=== PATIENT | male | born 1970 | race Caucasian/White ===

== ENCOUNTER → 2017-05-30 | Outpatient (CLI) | payer OTHER ==
[~2017-05-30] MED LIST: GADOBUTROL 10 ML VIAL IVP ONE
== END ==
LOC: FIMAGING 19:49
PROVIDERS: ATTEND Physician Assistant
DX: M51.36 Other intervertebral disc degeneration, lumbar region (principal); R22.9 Localized swelling, mass and lump, unspecified
CPT/HCPCS: A9585

== ENCOUNTER → 2017-09-04 | Outpatient (CLI) | payer OTHER | LOC: FIMAGING 10:45 | PROVIDERS: ATTEND Physician Assistant | DX: M51.36 Other intervertebral disc degeneration, lumbar region (principal); M12.88 Other specific arthropathies, not elsewhere classified, other specified site; M51.26 Other intervertebral disc displacement, lumbar region; M48.061 Spinal stenosis, lumbar region without neurogenic claudication; M99.73 Connective tissue and disc stenosis of intervertebral foramina of lumbar region | CPT/HCPCS: A9585 ==

== ENCOUNTER 2017-12-06 08:58 | Emergency (ER) | payer OTHER ==
--- NOTE | 2017-12-06 09:11 | CPEKG ---
Heart Rate: 59 RR Interval: 1017 P-R Interval: 176 QRSD Interval: 92 QT Interval: 436 QTC Interval: 432 P Mauk: 51 QRS Mauk: 47 T Wave Mauk: 52 EKG Severity - NORMAL ECG - EKG Impression: SINUS RHYTHM Electronically Signed By: Zaki Anne 06-Dec-2017 09:11:28
[2017-12-06] MEDS ORDERED: ASPIRIN 81 MG CHEWABLE TAB PO ONE (09:15)
--- NOTE | 2017-12-06 09:20 | EDPHY ---
H & P Stated Complaint: CP - Personal History Current Tetanus/Diphtheria Vaccine: Yes Current Tetanus Diphtheria and Acellular Pertussis (TDAP): Yes - Medical/Surgical History Hx Asthma: No Hx Chronic Respiratory Disease: No Hx Diabetes: No Hx Cardiac Disease: No Hx Renal Disease: No Hx Cirrhosis: No Hx Alcoholism: No Hx HIV/AIDS: No Hx Splenectomy or Spleen Trauma: No Other PMH: hypothyroid - Social History Smoking Status: Never smoked Time Seen by Provider: 12/06/17 09:08 HPI/ROS: CHIEF COMPLAINT: Chest pain, now resolved HISTORY OF PRESENT ILLNESS: 47 year male arrives via private vehicle complaining of "heartburn" which started at 720 a.m. this morning after being in a self-described easy yoga class for approximately 15 min. Pain lasted approximately 20 min. It was not associated with dyspnea, diaphoresis, nausea, jaw pain, arm pain, syncope, near syncope. Currently asymptomatic. He completed the yoga class. He went to an urgent care after yoga class and was referred to the ER for further evaluation. Yesterday he went for an hour long exertional bicycle ride and did not experience chest pain with exertion or dyspnea with exertion, beyond that expected with exercise. He denies: Recent illness, dyspnea, syncope, near syncope, URI symptoms, trauma, fall REVIEW OF SYSTEMS: A ten point review of systems was performed and is negative with the exception of the items mentioned in the HPI PAST MEDICAL & SURGICAL HISTORY: appendectomy. Intermittent chronic back pain SOCIAL HISTORY: Nonsmoker. No drug use. No cocaine use. Works as a computer customer support specialist. FAMILY HISTORY: Father with history of CABG at age 68. Otherwise no family history of cardiac disease. No vasculopathy history. PHYSICAL EXAM (Prior to examination, patient consented to physical exam, hands were washed and my usual and customary physical exam procedures followed) 1) GENERAL: Well-developed, well-nourished, alert and oriented. Appears to be in no acute distress. Smiling, shakes my hand appears well 2) HEAD: Normocephalic, atraumatic 3) HEENT: Pupils equal, round, reactive to light bilaterally. Sclera anicteric. 4) NECK: Full range of motion, no meningeal signs. No carotid bruit. 5) LUNGS: Clear auscultation bilaterally, no wheezes, no rhonchi, no retractions. No chest wall pain. 6) HEART: Regular rate and rhythm, no murmur, no heave, no gallop. 7) ABDOMEN: No guarding, no rebound, no focal tenderness, negative McBurney's, negative Weaver's, negative Rovsing's, negative peritoneal sign, 8) MUSCULOSKELETAL: Moving all extremities, no focal areas of tenderness, no obvious trauma. No peripheral edema or discoloration. Negative Homans no palpable cord 9) BACK: No visual or palpable abnormality. 10) SKIN: No rash, no petechiae. 11) Psychiatric: Patient is oriented X 3, there is no agitation. DIFFERENTIAL DIAGNOSIS: In no particular order, including but not limited to myocardial ischemia, pulmonary embolus, chest wall pain, pleural inflammation and pulmonary infectious causes. (Rd Carter) Constitutional: Initial Vital Signs Temperature (C) 36.9 C 12/06/17 09:01 Heart Rate 60 12/06/17 09:01 Respiratory Rate 16 12/06/17 09:01 Blood Pressure 125/89 H 12/06/17 09:01 O2 Sat (%) 95 12/06/17 09:01 O2 Delivery Mode Room Air Allergies/Adverse Reactions: No Known Drug Allergies Allergy (Verified 12/06/17 09:19) Home Medications: Medication Instructions Recorded Synthroid 12/06/17 Medical Decision Making - Diagnostics Imaging Results: Imaging Impressions Chest X-Ray 12/06/17 09:16 Impression: Normal chest x-ray. ED Course/Re-evaluation: Patient was re-evaluated with serial in examinations emergency department. Patient was also seen and examined by Dr. Zaki Anne in the ER, secondary supervising physician. Patient has negative initial troponin, low risk Heart pathway score. In addition, reassuring that he went for a 1 hr bicycle ride yesterday described as strenuous and did not experience chest pain with exertion or dyspnea with exertion. I think that acute cardiac and/or pulmonary etiology is less than likely. Patient has been informed of the limitations of diagnostic studies and that his risk is not zero for [facility]. We discussed repeat troponin or discharge from the ER. He would prefer to be discharged from the ER. I think this is reasonable decision. I think the patient has decision- making capacity. Plan on follow-up with [facility]. Usual and customary cardiac precautions and instructions provided. (Rd Carter) Other Provider: PHYSICIAN DOCUMENTATION: The patient was evaluated and managed by the Physician [employer] and myself. I have reviewed the chart and agree with the findings and plan of care as documented. In addition, I examined the patient myself at 935. History confirmed as heartburn lasting 20 min this morning. Physical findings as follows : Regular rate rhythm without murmur. Denies diabetes or high cholesterol, nonsmoker, no cocaine, no family history of venous thromboembolism or premature coronary disease. Normal EKG and troponin. Think the patient is a very low risk for acute coronary syndrome or myocardial infarction. He had some back pain late last year which resulted in hypertension in the office, after his back pain was treated the blood pressure resolved. Primary care is [facility]. I am the secondary supervising physician. (Zaki Anne) - Data Points Laboratory Results: Laboratory Results 12/06/17 09:10 12/06/17 09:10 12/06/17 12/06/17 12/06/17 09:15 09:10 09:10 WBC 5.14 10^3/uL 10^3/uL (3.80-9.50) RBC 4.95 10^6/uL 10^6/uL (4.40-6.38) Hgb 15.7 g/dL g/dL (13.7-17.5) Hct 46.4 % % (40.0-51.0) MCV 93.7 fL fL (81.5-99.8) MCH 31.7 pg pg (27.9-34.1) MCHC 33.8 g/dL g/dL (32.4-36.7) RDW 12.4 % % (11.5-15.2) Plt Count 297 10^3/uL 10^3/uL (150-400) MPV 9.5 fL fL (8.7-11.7) Neut % (Auto) 49.5 % % (39.3-74.2) Lymph % (Auto) 36.4 % % (15.0-45.0) Swisher % (Auto) 11.1 % % (4.5-13.0) Eos % (Auto) 1.6 % % (0.6-7.6) Baso % (Auto) 1.2 % % (0.3-1.7) Nucleat RBC Rel Count 0.0 % % (0.0-0.2) Absolute Neuts (auto) 2.55 10^3/uL 10^3/uL (1.70-6.50) Absolute Lymphs (auto) 1.87 10^3/uL 10^3/uL (1.00-3.00) Absolute Monos (auto) 0.57 10^3/uL 10^3/uL (0.30-0.80) Absolute Eos (auto) 0.08 10^3/uL 10^3/uL (0.03-0.40) Absolute Basos (auto) 0.06 10^3/uL 10^3/uL (0.02-0.10) Absolute Nucleated RBC 0.00 10^3/uL 10^3/uL (0-0.01) Immature Gran % 0.2 % % (0.0-1.1) Immature Gran # 0.01 10^3/uL 10^3/uL (0.00-0.10) Sodium 143 mEq/L mEq/L (135-145) Potassium 4.4 mEq/L mEq/L (3.3-5.0) Chloride 103 mEq/L mEq/L (97-110) Carbon Dioxide 28 mEq/l mEq/l (22-31) Anion Gap 12 mEq/L mEq/L (8-16) BUN 16 mg/dL mg/dL (7-23) Creatinine 0.9 mg/dL mg/dL (0.7-1.3) Estimated GFR > 60 Glucose 93 mg/dL mg/dL (70-100) Calcium 9.5 mg/dL mg/dL (8.5-10.4) POC Troponin I 0.00 ng/mL ng/mL (0.00-0.08) Medications Given: Discontinued Medications Aspirin (Aspirin) 324 mg PO EDNOW ONE Stop: 12/06/17 09:16 Last Admin: 12/06/17 09:19 Dose: 324 mg Point of Care Test Results: Chemistry 12/06/17 09:15 POC Troponin I 0.00 ng/mL ng/mL (0.00-0.08) Departure - Departure Disposition: Home, Routine, Self-Care Clinical Impression: Chest pain Qualifiers: Chest pain type: other chest pain Qualified Code(s): R07.89 - Other chest pain Condition: Good Instructions: Chest Pain (ED) Additional Instructions: Seek medical attention if you develop new or worsening chest pain, if you develop new or worsening shortness of breath, or any other symptoms that concern you. Referrals: [facility] [Outside] - 2-3 days, call for appt.
[2017-12-06 09:35] LABS: PLATELET COUNT 297 10^3/uL (150-400)
[2017-12-06 09:55] VITALS: BP 122/86
== END 2017-12-06 09:56 | disposition home or self-care (01) ==
DX: R07.89 Other chest pain (principal)
CPT/HCPCS: 84484-PO

== ENCOUNTER → 2018-07-30 | Outpatient (CLI) | payer OTHER | LOC: FIMAGING 06:41 | PROVIDERS: ATTEND Nurse Practitioner | DX: M48.061 Spinal stenosis, lumbar region without neurogenic claudication (principal); M48.07 Spinal stenosis, lumbosacral region; M51.36 Other intervertebral disc degeneration, lumbar region; M51.37 Other intervertebral disc degeneration, lumbosacral region; M46.96 Unspecified inflammatory spondylopathy, lumbar region; M46.97 Unspecified inflammatory spondylopathy, lumbosacral region; M46.94 Unspecified inflammatory spondylopathy, thoracic region | CPT/HCPCS: A9585 ==